=== PATIENT | male | born 1950 | race Caucasian/White ===

== ENCOUNTER 2022-03-30 08:05 | Day surgery (SDC) | payer BC, MEDICARE ==
[2022-03-28 09:59] VITALS: BMI 27.3
[~2022-03-30 08:05] MED LIST: LACTATED RINGERS 1,000 ML IV SCH
[2022-03-30 08:27] VITALS: TEMP 97.3
[2022-03-30] MEDS ORDERED: LIDOCAINE 2% INJ 20 MG/ML (2 ML VIAL) ONE (09:27)
[2022-03-30] MEDS ORDERED: GLYCOPYRROLATE 0.2 MG/ML 2 ML VIAL ONE (09:27)
[2022-03-30] MEDS ORDERED: PROPOFOL 10 MG/ML 20 ML VIAL IV ONE (09:27)
--- NOTE | 2022-03-30 09:42 | P.OP ---
Date of Procedure: 03/30/22 Preoperative Diagnosis: Screening colonoscopy Postoperative Diagnosis: Diverticulosis Procedure(s) Performed: Colonoscopy Anesthesia: MAC Surgeon: Lit Neville Pathology: none sent Condition: stable Disposition: PACU Description of Procedure: The patient's placed on the endoscopy table in the lateral position. He received IV sedation. Digital rectal exam performed. This revealed no ebonized. Flexible colonoscope was then placed patient anus and passed throughout the entire colon. The ileocecal valve was visualized. The cecum, ascending and transverse colon appeared normal. In the descending; there is moderate diverticular changes. Scope was then brought back the rectum was normal. Scope withdrawn the anus and internal hemorrhoids are noted. Scope was withdrawn for patient.
[2022-03-30 10:22] VITALS: BP 113/81; PULSE 96; RESP 15
--- NOTE | 2022-03-30 14:27 | P.GSHP ---
History of Present Illness H&P Date: 03/30/22 Chief Complaint: Screening colonoscopy This a 72-year-old male presents today for screening colonoscopy. Patient denies a significant GI complaints Past Medical History Past Medical History: No Reported History Additional Past Medical History / Comment(s): Seasonal allergies. History of Any Multi-Drug Resistant Organisms: None Reported Past Surgical History: Hernia Repair Additional Past Surgical History / Comment(s): Colonoscopy. Past Anesthesia/Blood Transfusion Reactions: No Reported Reaction Past Psychological History: No Psychological Hx Reported Smoking Status: Former smoker Past Alcohol Use History: Occasional Additional Past Alcohol Use History / Comment(s): Quit smoking 10-12 yrs ago. Rare cigar. Past Drug Use History: None Reported - Past Family History Father Family Medical History: Cancer Mother Family Medical History: Cancer Medications and Allergies Home Medications Medication Instructions Recorded Confirmed Type Loratadine [Claritin] 10 mg PO HS 03/28/22 03/30/22 History Naproxen Sodium [Aleve] 220 mg PO QAM 03/28/22 03/28/22 History Potassium (Unknown Dose) 1 tab PO DAILY 03/28/22 03/28/22 History Allergies Allergy/AdvReac Type Severity Reaction Status Date / Time No Known Allergies Allergy Verified 03/30/22 08:22 Surgical - Exam Vital Signs Temp Pulse Resp BP Pulse Ox 97.3 F L 95 16 154/102 99 03/30/22 08:26 03/30/22 08:26 03/30/22 08:26 03/30/22 08:26 03/30/22 08:26 - General well developed, well nourished, no distress - Eyes PERRL - ENT normal pinna - Neck no masses - Respiratory normal expansion - Cardiovascular Rhythm: regular - Abdomen Abdomen: soft, non tender Assessment and Plan Assessment: We'll perform screening colonoscopy
== END 2022-03-30 10:30 | disposition home or self-care (01) ==
LOC: ORWHC2ENDO 08:05
PROVIDERS: ATTEND Surgery
DX: Z12.11 Encounter for screening for malignant neoplasm of colon (principal); K57.30 Diverticulosis of large intestine without perforation or abscess without bleeding; K64.8 Other hemorrhoids; Z87.891 Personal history of nicotine dependence; Z86.59 Personal history of other mental and behavioral disorders; Z80.9 Family history of malignant neoplasm, unspecified; Z79.899 Other long term (current) drug therapy
CPT/HCPCS: J2704; J2001; G0121

== ENCOUNTER 2022-04-20 03:14 | Inpatient (IN) | payer MEDICARE ==
[2022-04-20] MEDS ORDERED: NITROGLYCERIN SL TABS 0.4 MG TAB SUBLINGUAL PRN ×2 (03:18→04:53)
[2022-04-20] MEDS ORDERED: HEPARIN SODIUM 1,000 UN/ML (10ML VL) IV ONE ×2 (03:18→04:03)
[2022-04-20] MEDS ORDERED: MORPHINE SULFATE 4 MG/ML SYRINGE IV STA (03:18)
[2022-04-20] MEDS ORDERED: MORPHINE SULFATE 4 MG/ML SYRINGE IV PRN (03:18)
[2022-04-20] MEDS ORDERED: ASPIRIN 81 MG PO STA (03:18)
[2022-04-20] MEDS ORDERED: SODIUM CHLORIDE 0.9% 1,000 ML IV STA (03:18)
--- NOTE | 2022-04-20 03:22 | ED ---
Chest Pain HPI - General Chief Complaint: Chest Pain Stated Complaint: STEMI Time Seen by Provider: 04/20/22 03:17 Source: patient, RN notes reviewed, old records reviewed Mode of arrival: EMS Limitations: no limitations - History of Present Illness Initial Comments: This is a 72-year-old male to the emergency department with no medical history patient wakes up tonight sleeping in bed with severe anterior chest pain and heaviness and chest pain. No nausea vomiting no other complaints. Patient is no travel history or sick contacts. No prior evaluation for heart disease. Patient's chest pain is anterior crushing with sweating and shortness of breath MD Complaint: chest pain -: minutes(s) Onset: during rest, awoke with symptoms Pain Location: substernal, left chest Pain Radiation: back Severity: moderate Severity scale (1-10): 7 Quality: tightness, aching, heaviness Consistency: constant Improves With: nothing Worsens With: nothing Anginal Symptoms: dyspnea, sense of impending doom Other Symptoms: palpitations Treatments Prior to Arrival: none - Related Data Home Medications Medication Instructions Recorded Confirmed Loratadine [Claritin] 10 mg PO HS 03/28/22 03/30/22 Naproxen Sodium [Aleve] 220 mg PO QAM 03/28/22 03/28/22 Potassium (Unknown Dose) 1 tab PO DAILY 03/28/22 03/28/22 Allergies Allergy/AdvReac Type Severity Reaction Status Date / Time No Known Allergies Allergy Verified 03/30/22 08:22 Review of Systems ROS Statement: Those systems with pertinent positive or pertinent negative responses have been documented in the HPI. ROS Other: All systems not noted in ROS Statement are negative. EKG Findings - EKG Comments: EKG Findings:: EKG interpreted by me is bradycardia 54 TX 159 QRS [address] elevated LA anterior lateral Past Medical History Past Medical History: No Reported History Additional Past Medical History / Comment(s): Seasonal allergies. History of Any Multi-Drug Resistant Organisms: None Reported Past Surgical History: Hernia Repair Additional Past Surgical History / Comment(s): Colonoscopy. Past Anesthesia/Blood Transfusion Reactions: No Reported Reaction Past Psychological History: No Psychological Hx Reported Smoking Status: Former smoker Past Alcohol Use History: Occasional Additional Past Alcohol Use History / Comment(s): Quit smoking 10-12 yrs ago. Rare cigar. Past Drug Use History: None Reported - Past Family History Father Family Medical History: Cancer Mother Family Medical History: Cancer General Exam Limitations: no limitations General appearance: alert, in no apparent distress, anxious Head exam: Present: atraumatic, normocephalic, normal inspection Eye exam: Present: normal appearance, PERRL, EOMI. Absent: scleral icterus, conjunctival injection, periorbital swelling ENT exam: Present: normal exam, mucous membranes moist Neck exam: Present: normal inspection. Absent: tenderness, meningismus, lymphadenopathy Respiratory exam: Present: normal lung sounds bilaterally. Absent: respiratory distress, wheezes, rales, rhonchi, stridor Cardiovascular Exam: Present: regular rate, normal rhythm, normal heart sounds. Absent: systolic murmur, diastolic murmur, rubs, gallop, clicks GI/Abdominal exam: Present: soft, normal bowel sounds. Absent: distended, tenderness, guarding, rebound, rigid Extremities exam: Present: normal inspection, full ROM, normal capillary refill. Absent: tenderness, pedal edema, joint swelling, calf tenderness Back exam: Present: normal inspection Neurological exam: Present: alert, oriented X3, CN II-XII intact Psychiatric exam: Present: normal affect, normal mood Skin exam: Present: warm, dry, intact, normal color. Absent: rash Course Vital Signs 04/20/22 03:16 Temperature 98.4 F Pulse Rate 69 Respiratory 14 Rate Blood Pressure 123/86 O2 Sat by Pulse 98 Oximetry - Reevaluation(s) Reevaluation #1: 04/20/22 03:21 STEMI was paged on prehospital EKG Reevaluation #2: 04/20/22 03:21 medical record is reviewed Reevaluation #3: 04/20/22 03:21 Chest pain is still consistent with lower - Consultations Consultation #1: Spoke with cardiology where patient will see patient here in the ER Consultation #2: spoke with Dr. Alvares who is okay to admit this patient Chest Pain MDM - MDM [address] elevated LA on prior hospital EKG. Critical Care Time Critical Care Time: Yes Total Critical Care Time: 31 Disposition Clinical Impression: Chest pain, ST elevation myocardial infarction (STEMI) Disposition: ADMITTED IP TO THIS HOSP Condition: Serious Is patient prescribed a controlled substance at d/c from ED?: No Referrals: Chele Tyson Jr, [Primary Care Provider] - 1-2 days Time of Disposition: 03:50
[2022-04-20] MEDS ORDERED: HEPARIN SOD,PORK IN 0.45% NACL 25,000 UNIT in 0.45% NACL 1 250ML.BAG IV SCH (03:30)
[2022-04-20 03:36] LABS: Basophils % (A) 0 %; Eosinophils # (A) 0.4 k/uL (0-0.7); Eosinophils % (A) 4 %; HCT 43.6 % (39.0-53.0); Lymphocytes # (A) 2.4 k/uL (1.0-4.8); Lymphocytes % (A) 28 %; MCH 30.5 pg (25.0-35.0); MCHC 34.4 g/dL (31.0-37.0); MCV 88.6 fL (80.0-100.0); Mean Platelet Volume 7.5; Monocytes # (A) 0.6 k/uL (0-1.0); Monocytes % (A) 7 %; Neutrophils # (A) 4.8 k/uL (1.3-7.7); Neutrophils % (A) 56 %; Platelet Count 236 k/uL (150-450); RBC 4.93 m/uL (4.30-5.90); RDW 12.7 % (11.5-15.5); WBC 8.5 k/uL (3.8-10.6)
[2022-04-20] MEDS: ATORVASTATIN 80 MG TAB PO SCH (03:36)
[2022-04-20 03:42] LABS: INR 0.9 (<1.2); Partial Thromboplastin Time 22.2 sec (22.0-30.0)
[2022-04-20 03:44] LABS: ALT 21 U/L (4-49); AST 26 U/L (17-59); African American GFR (CKD) >90 (>60 ml/min/1.73 sqM); Alkaline Phosphatase 101 U/L (38-126); Anion Gap 9 mmol/L; Blood Urea Nitrogen 17 mg/dL (9-20); Calcium 9.1 mg/dL (8.4-10.2); Carbon Dioxide 25 mmol/L (22-30); Chloride 102 mmol/L (98-107); Glucose 176 mg/dL (74-99); Lipase 50 U/L (23-300); Magnesium 1.8 mg/dL (1.6-2.3); Non-African American GFR(CKD) 88 (>60 ml/min/1.73 sqM); Potassium 3.9 mmol/L (3.5-5.1); Sodium 136 mmol/L (137-145); Total Bilirubin 0.5 mg/dL (0.2-1.3); Total Protein 6.4 g/dL (6.3-8.2)
--- NOTE | 2022-04-20 03:50 | XR ---
EXAMINATION TYPE: XR chest 1V portable DATE OF EXAM: 04/20/2022 COMPARISON: NONE HISTORY: Chest pain TECHNIQUE: Single view FINDINGS: Heart is normal. Lungs are clear of consolidation. There are no hilar masses. Costophrenic angles are clear. There are chest leads. Bony thorax is intact IMPRESSION: No active cardiopulmonary disease. Normal heart.
[2022-04-20] MEDS ORDERED: VERAPAMIL 2.5 MG/ML 2 ML AMP ONE (03:51)
[2022-04-20] MEDS ORDERED: HEPARIN SODIUM 1,000 UN/ML (10ML VL) ONE (03:51)
[2022-04-20] MEDS ORDERED: MIDAZOLAM 2 MG/2 ML VIAL IVP ONE (03:53)
[2022-04-20] MEDS ORDERED: LIDOCAINE 1% INJ 10MG/ML (5 ML VIAL-PF) SQ ONE (03:56)
[2022-04-20] MEDS ORDERED: IV FLUID CONTINUATION 1,000 ML IV ONE (03:56)
--- NOTE | 2022-04-20 03:57 | P.CRDCN ---
History of Present Illness History of present illness: This is Dr. Yang dictating a consult on this patient The patient was interviewed and examined IMPRESSION / ASSESSMENT: Acute inferior posterior ST elevation [place] Twelve-lead EKG shows ST elevation in the inferior leads and ST depressions in V1 and V2 consistent with an inferior posterior [place] ST elevation is more prominent in lead 2 than in lead 3 History of dyslipidemia Denies history of hypertension or diabetes History of smoking, quit greater than 10 years back History of hypokalemia, takes oral potassium PLAN: Patient received IV heparin 4000 units along with aspirin and metoprolol by mouth He was given 80 mg of atorvastatin in the ER by me Lipid panel hemoglobin A1c added to current sample Discussed with Dr. Painter and we'll proceed with urgent coronary angiography and intervention Discussed the patient and his . We will start spironolactone postprocedure since he has a history of hyperkalemia HPI patient woke up about 2:30 AM complaining of midsternal chest discomfort and bilateral arm heaviness He was a little dizzy and a bit short of breath The pain is persistent and he called EMS The EMS EKG documents ST elevation in the inferior leads When I saw him in the ER he was still experiencing midsternal chest discomfort but would comfortable Normal heart rates normal blood pressure Twelve-lead EKG showed ST elevation in the inferior leads and ST depression with T-wave inversions in V1 and V2 consistent with inferior posterior [place] ST elevations more prominent in lead 2 than in lead 3 Denies history of hypertension and diabetes Past history of smoking, stopped smoking 10 years back History of hypokalemia and takes oral potassium ROS: No fever chills or rigors, no cough, phlegm or expectoration, no nausea, vomiting or diarrhea, no hematuria, dysuria, no musculoskeletal complaints, no strokes or seizures, no skin lesions. EXAMINATION: Afebrile 98.4F blood pressure 123/86 mmHg Breath sounds are reduced bilaterally with scattered crackles at the bases Normal heart sounds normal S1 normal S2 no murmurs no gallops no rub No JVD no hepatojugular reflux No carotid bruits Peripheral pulses are palpable Regular rhythm REVIEW OF LABS, ECG & MEDICAL DATA Normal white count 8.5 thousand Normal hemoglobin of 15 Normal platelet count of 236,000 Sodium 136, potassium 3.9 Creatinine 0.87 Normal liver function tests Elevated glucose of 176 Past Medical History Past Medical History: No Reported History Additional Past Medical History / Comment(s): Seasonal allergies. History of Any Multi-Drug Resistant Organisms: None Reported Past Surgical History: Hernia Repair Additional Past Surgical History / Comment(s): Colonoscopy. Past Anesthesia/Blood Transfusion Reactions: No Reported Reaction Past Psychological History: No Psychological Hx Reported Smoking Status: Former smoker Past Alcohol Use History: Occasional Additional Past Alcohol Use History / Comment(s): Quit smoking 10-12 yrs ago. Rare cigar. Past Drug Use History: None Reported - Past Family History Father Family Medical History: Cancer Mother Family Medical History: Cancer Medications and Allergies Home Medications Medication Instructions Recorded Confirmed Type Loratadine [Claritin] 10 mg PO HS 03/28/22 03/30/22 History Naproxen Sodium [Aleve] 220 mg PO QAM 03/28/22 03/28/22 History Potassium (Unknown Dose) 1 tab PO DAILY 03/28/22 03/28/22 History Allergies Allergy/AdvReac Type Severity Reaction Status Date / Time No Known Allergies Allergy Verified 03/30/22 08:22 Physical Exam Vitals: Vital Signs Temp Pulse Pulse Resp BP Pulse Ox 04/20/22 03:25 64 04/20/22 03:16 98.4 F 69 14 123/86 98 Intake and Output 04/19/22 04/19/22 04/20/22 14:59 22:59 06:59 Other: Weight 88.904 kg Results 04/20/22 03:15 04/20/22 03:15 Cardiac Enzymes 04/20/22 Range/Units 03:15 AST 26 (17-59) U/L CBC 04/20/22 Range/Units 03:15 WBC 8.5 (3.8-10.6) k/uL RBC 4.93 (4.30-5.90) m/uL Hgb 15.0 (13.0-17.5) gm/dL Hct 43.6 (39.0-53.0) % Plt Count 236 (150-450) k/uL Comprehensive Metabolic Panel 04/20/22 Range/Units 03:15 Sodium 136 L (137-145) mmol/L Potassium 3.9 (3.5-5.1) mmol/L Chloride 102 (98-107) mmol/L Carbon Dioxide 25 (22-30) mmol/L BUN 17 (9-20) mg/dL Creatinine 0.87 (0.66-1.25) mg/dL Glucose 176 H (74-99) mg/dL Calcium 9.1 (8.4-10.2) mg/dL AST 26 (17-59) U/L ALT 21 (4-49) U/L Alkaline Phosphatase 101 (38-126) U/L Total Protein 6.4 (6.3-8.2) g/dL Albumin 4.0 (3.5-5.0) g/dL Current Medications Generic Name Dose Route Start Last Admin Trade Name Freq PRN Reason Stop Dose Admin Aspirin 325 mg 04/21/22 09:00 Aspirin 325 Mg Tab PO DAILY [facility] Atorvastatin Calcium 80 mg 04/20/22 09:00 04/20/22 03:36 Atorvastatin 80 Mg Tab PO 80 mg DAILY TC Administration Sodium Chloride 1,000 mls @ 100 mls/hr 04/20/22 03:18 04/20/22 03:24 Saline 0.9% IV 04/20/22 13:17 100 mls/hr .Q10H STA Administration Heparin Sodium/Sodium Chloride 250 mls @ 10.002 mls/hr 04/20/22 03:30 25,000 unit/ Sodium Chloride IV .Q24H [facility] Protocol 11.25 UNITS/KG/HR Metoprolol Tartrate 25 mg 04/20/22 09:00 Metoprolol Tartrate 25 Mg Tab PO BID [facility] Morphine Sulfate 4 mg 04/20/22 03:18 Morphine Sulfate 4 Mg/Ml Syringe IV Q6HR PRN Chest Pain Nitroglycerin 0.4 mg 04/20/22 03:18 Nitroglycerin Sl Tabs 0.4 Mg Tab SUBLINGUAL Q5M PRN Chest Pain Intake and Output 04/19/22 04/19/22 04/20/22 14:59 22:59 06:59 Other: Weight 88.904 kg Patient Weight 04/20/22 06:59 Weight 88.904 kg 04/20/22 03:15 04/20/22 03:15
[2022-04-20] MEDS ORDERED: VERAPAMIL SYRINGE (5 MG/10 ML) INTRAARTER ONE (04:00)
[2022-04-20] MEDS ORDERED: MORPHINE SULFATE 4 MG/ML SYRINGE ONE (04:06)
[2022-04-20] MEDS ORDERED: MORPHINE SULFATE 4 MG/ML SYRINGE IVP ONE (04:10)
[2022-04-20] MEDS ORDERED: CLOPIDOGREL 75 MG TAB ONE (04:11)
[2022-04-20] MEDS ORDERED: CLOPIDOGREL 75 MG TAB PO ONE (04:14)
[2022-04-20] MEDS ORDERED: SODIUM CHLORIDE 0.9% 1,000 ML IV ONE (04:27)
[2022-04-20] MEDS ORDERED: ADENOSINE 90 MG in SODIUM CHLORIDE 0.9% 60 ML IVP ONE (04:40)
[2022-04-20] MEDS ORDERED: IOPAMIDOL-300 50ML BTL INJ ONE (04:47)
[2022-04-20] MEDS ORDERED: IOPAMIDOL-370 100ML BTL INJ ONE (04:47)
[2022-04-20] MEDS ORDERED: ATROPINE SULFATE 0.1 MG/ML 10ML SYRINGE IV PRN (04:53)
[2022-04-20] MEDS ORDERED: RX INFO: IV CONTRAST WAS GIVEN 1 EACH MISC MISCELLANE PRN (04:53)
[2022-04-20] MEDS ORDERED: ZOLPIDEM 5 MG TAB PO PRN (04:53)
[2022-04-20] MEDS ORDERED: MAG HYDROX/AL HYDROX/SIMETH 30 ML CUP PO PRN (04:53)
[2022-04-20] MEDS ORDERED: SODIUM CHLORIDE 0.9% 1,000 ML in EMPTY BAG 1 BAG IV SCH (05:00)
--- NOTE | 2022-04-20 05:03 | P.PCN ---
Date of Procedure: 04/20/22 Operative Findings: CARDIAC CATHETERIZATION AND PERCUTANEOUS CORONARY INTERVENTION PERFORMING PHYSICIAN: Humza Painter MD, [facility] PROCEDURE PERFORMED: 1. Selective right and left coronary angiogram 2. Left heart catheterization 3. Successful stenting of proximal LCx using 3.5 x 23 mm Xience MAYANK which with an excellent angiographic results with adjunctive view was of aspiration thrombectomy 4. FFR of the left anterior descending artery INDICATION: Acute infero-posterior ST segment elevation myocardial infarction COMPLICATION: None APPROACH: Right radial artery LEVEL OF SEDATION: Moderate with the sedation time off 56 minutes PROCEDURE DESCRIPTION: After obtaining an informed consent the patient was brought to the cardiac field laboratory operator. The right radial artery was cannulated using micropuncture technique, the micropuncture wire passed easily then I placed a 6-Sinhala sheath. I gave the patient 2 mg of verapamil intra-arterial and he was given initially 4000 use of heparin intravenous and additional 2000 units of heparin given throughout the procedure with continuous ACT monitoring. Selective right and left coronary angiogram was performed using JR4 diagnostic catheter for the right coronary artery and JL 3.5 guiding catheter for the left coronary system. After that I did intervene on the LCx. After that I did an FFR of the LAD. Left heart catheterization after that was performed using pigtail catheter. The procedure was completed without any complication SELECTIVE CORONARY ANGIOGRAM: The right coronary artery: Large caliber vessel and dominant vessel. The RCA is angiographically normal. Bifurcates distally into PDA and PLV branches both appears to be angiographically normal Left main: Has mild disease only The left circumflex: Large-caliber vessel and nondominant vessel. The LCx is occluded in the proximal portion with a large thrombus burden. The left anterior descending artery: Large-caliber vessel. The proximal LAD has mild disease only. The mid LAD has a tubular lesion appears to be in the range of 60%. FFR was performed and came in to be nonischemic at 0.87. HEMODYNAMICS: The LVEDP was 15 mmHg was no significant gradient across aortic valve PCI OF THE LCx: Anticoagulation was initiated using heparin with continuous ACT monitoring. I did engage the left main using a JL 3.5 guiding catheter. I did wire the LCx and cross the acute total occlusion using a whisper wire. After that I did aspiration thrombectomy from the LCx. Balloon angioplasty was performed after that using 2.5 x 15 mm balloon before I deployed 3.5 x 23 mm stent where the stent was positioned under fluoroscopy guidance and deployed under its nominal pressure. Postdilatation was performed using 4 mm noncompliant balloon. Final angiogram of the left circumflex showed good angiographic results. Because there was intermediate lesion involving the LAD I decided to FFR it only. After zeroing the Doppler wire and equalizing between the Doppler wire and the guiding catheter which was JL 3.5 guiding catheter I did an FFR with IV at his infusion that came in to be 0.87 which is nonischemic. CONCLUSION: 1. 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 Successful stenting of the LCx was performed with NIKKY-3 flow 2. Intermediate none flow limiting lesion involving the mid left anterior descending artery 3. Normal left side filling pressure POSTPROCEDURE MANAGEMENT: #1 dual antiplatelet therapy using aspirin and Plavix for at least 12 months #2 aggressive cholesterol control #3 follow-up with the patient
[2022-04-20 05:14] LABS: Glucose,Whole Blood 120 mg/dL (70-110)
[2022-04-20] MEDS ORDERED: Potassium Replacement Protocol 1 EACH MISC MISCELLANE PRN (08:13)
[2022-04-20] MEDS: METOPROLOL TARTRATE 25 MG TAB PO SCH ×2 (08:29→20:15)
[2022-04-20] MEDS ORDERED: METOPROLOL TARTRATE 25 MG TAB PO SCH (09:00)
[2022-04-20] MEDS ORDERED: POTASSIUM CHLORIDE ER 20 MEQ TAB.ER PO SCH (09:00)
--- NOTE | 2022-04-20 11:26 | P.HPIM ---
History of Present Illness H&P Date: 04/20/22 Chief Complaint: Chest pain This is 72-year-old male patient previously seen by our nurse practitioner, Tyrell Talley, began experiencing midsternal chest pressure or valentine rtness of breath and diaphoresis in the early hours of April 20. He came emergency room and found to have an acute inferior/posterior ST elevated myocardial infarction. He was taken to soap slabber and successfully had a stent of the left circumflex artery. Currently is resting in the intensive care unit without complaint. All his questions were discussed and answered with his at bedside. Currently the patient denies any chest pains compression, shortness breath, nausea or vomiting. He is urinating normally. He does not have bowel movement. Vital signs show a normal heart rate, normal blood pressure, pulse oximetry normal on room air. Laboratory studies are stable. Of note his abnormal troponin at 0.313 x 128.00. CBC and chemistries were essentially normal. Did have glucose so that was 176 admission. Chest x-ray was normal. He is currently on aspirin, atorvastatin 80 mg, Plavix, metoprolol, when necessary nitroglycerin, Ambien, and when necessary morphine. Waterway Traffic Checker consult it, and artery performed cardiac catheterization and stenting, and her monitoring his status. Review of Systems All systems: negative Past Medical History Past Medical History: No Reported History Additional Past Medical History / Comment(s): Seasonal allergies. History of Any Multi-Drug Resistant Organisms: None Reported Past Surgical History: Hernia Repair Additional Past Surgical History / Comment(s): Colonoscopy. Past Anesthesia/Blood Transfusion Reactions: No Reported Reaction Past Psychological History: No Psychological Hx Reported Smoking Status: Former smoker Past Alcohol Use History: Occasional Additional Past Alcohol Use History / Comment(s): Quit smoking 10-12 yrs ago. Rare cigar. Past Drug Use History: None Reported - Past Family History Father Family Medical History: Cancer Additional Family Medical History / Comment(s): Liver cirrosis Mother Family Medical History: Cancer Additional Family Medical History / Comment(s): Valve replacement Medications and Allergies Home Medications Medication Instructions Recorded Confirmed Type Loratadine [Claritin] 10 mg PO HS 03/28/22 04/20/22 History Naproxen Sodium [Aleve] 220 mg PO DAILY 03/28/22 04/20/22 History Potassium (Unknown Dose) 1 tab PO DAILY 03/28/22 04/20/22 History Allergies Allergy/AdvReac Type Severity Reaction Status Date / Time No Known Allergies Allergy Verified 04/20/22 10:30 Physical Exam Vitals: Vital Signs Temp Pulse Pulse Pulse Pulse Resp BP 04/20/22 10:00 79 16 111/76 04/20/22 09:00 81 15 118/88 04/20/22 08:30 90 16 118/88 04/20/22 08:00 98.3 F 96 23 115/81 04/20/22 07:32 04/20/22 07:30 92 14 126/83 04/20/22 07:00 96 14 130/98 04/20/22 06:30 77 9 L 130/89 04/20/22 06:20 90 14 130/89 04/20/22 06:15 93 04/20/22 06:10 93 13 135/88 04/20/22 06:00 90 17 123/86 04/20/22 05:50 85 13 123/86 04/20/22 05:40 85 10 L 113/80 04/20/22 05:30 97.7 F 87 80 20 128/101 04/20/22 05:20 97.7 F 89 14 128/101 04/20/22 05:14 92 14 04/20/22 03:41 97.7 F 86 20 04/20/22 03:25 64 04/20/22 03:16 98.4 F 69 14 123/86 BP Pulse Ox 04/20/22 10:00 95 04/20/22 09:00 92 L 04/20/22 08:30 91 L 04/20/22 08:00 93 L 04/20/22 07:32 93 L 04/20/22 07:30 04/20/22 07:00 94 L 04/20/22 06:30 04/20/22 06:20 96 04/20/22 06:15 04/20/22 06:10 96 04/20/22 06:00 96 04/20/22 05:50 94 L 04/20/22 05:40 95 04/20/22 05:30 136/87 97 04/20/22 05:20 96 04/20/22 05:14 04/20/22 03:41 113/80 97 04/20/22 03:25 04/20/22 03:16 98 Intake and Output 04/19/22 04/20/22 04/20/22 22:59 06:59 14:59 Intake Total 385 400 Output Total 600 Balance 385 -200 Intake: IV 235 225 Sodium Chloride 0.9% 1, 225 000 ml In Empty Bag 1 bag @ 75 mls/hr IV .[id number] TC Rx#:[id number] Intake, IV Titration 150 75 Amount Sodium Chloride 0.9% 1, 150 75 000 ml In Empty Bag 1 bag @ 75 mls/hr IV .[id number] TC Rx#:[id number] Oral 100 Output: Urine 600 Other: # Voids 1 Weight 92.9 kg GENERAL: Well-appearing, well-nourished and in no acute distress. HEAD: Atraumatic, normocephalic. EYES: Pupils equal round and reactive to light, extraocular movements intact, sclera anicteric, conjunctiva are normal. ENT:nares patent, oropharynx clear without exudates. Moist mucous membranes. NECK: Normal range of motion, supple without lymphadenopathy or JVD, no thyromegaly LUNGS: Breath sounds clear to auscultation bilaterally and equal. No wheezes rales or rhonchi. HEART: Regular rate and rhythm without murmurs, rubs or gallops.S1S2 Normal ABDOMEN: Soft, nontender, normoactive bowel sounds. No guarding, no rebound. No masses appreciated. EXTREMITIES: Normal range of motion, no pitting or edema. No clubbing or cyanosis. NEUROLOGICAL: Cranial nerves II through XII grossly intact. Normal speech, normal gait. PSYCH: Normal mood, normal affect. SKIN: Warm, Dry, normal turgor, no rashes or lesions noted. Results CBC & Chem 7: 04/20/22 03:15 04/20/22 03:15 Labs: Abnormal Lab Results - Last 24 Hours (Table) 04/20/22 04/20/22 04/20/22 Range/Units 03:15 03:15 05:13 Sodium 136 L (137-145) mmol/L Glucose 176 H (74-99) mg/dL POC Glucose (mg/dL) 120 H (70-110) mg/dL Troponin I 0.313 H* (0.000-0.034) ng/mL 04/20/22 Range/Units 08:30 Sodium (137-145) mmol/L Glucose (74-99) mg/dL POC Glucose (mg/dL) (70-110) mg/dL Troponin I 128.000 H* (0.000-0.034) ng/mL Chest x-ray: report reviewed Thrombosis Risk Factor Assmnt - DVT/VTE Prophylaxis DVT/VTE Prophylaxis: Pharmacologic Prophylaxis ordered - Choose All That Apply Each Factor Represents 1 point: Acute [place], Age 41-60 years Other Risk Factors: No Thrombosis Risk Factor Assessment Total Risk Factor Score: 2 Thrombosis Risk Factor Assessment Level: Low Risk Assessment and Plan (1) S/P cardiac catheterization Current Visit: Yes Status: Acute Code(s): Z98.890 - OTHER SPECIFIED POSTPROCEDURAL STATES SNOMED Code(s): 71171051453418 (2) H/O heart artery stent Current Visit: Yes Status: Acute Code(s): Z95.5 - PRESENCE OF CORONARY ANGIOPLASTY IMPLANT AND GRAFT SNOMED Code(s): 381603497 (3) Seasonal allergies Current Visit: Yes Status: Acute Code(s): J30.2 - OTHER SEASONAL ALLERGIC RHINITIS SNOMED Code(s): 704383611 (4) Osteoarthritis Current Visit: Yes Status: Acute Code(s): M19.90 - UNSPECIFIED OSTEOARTHRITIS, UNSPECIFIED SITE SNOMED Code(s): 407893096 (5) Hyperlipidemia Current Visit: Yes Status: Acute Code(s): E78.5 - HYPERLIPIDEMIA, UNSPECIFIED SNOMED Code(s): 39251342 (6) Chest pain Current Visit: Yes Status: Acute Code(s): R07.9 - CHEST PAIN, UNSPECIFIED SNOMED Code(s): 88637747 (7) ST elevation myocardial infarction (STEMI) Current Visit: Yes Status: Acute Code(s): I21.3 - ST ELEVATION (STEMI) MYOCARDIAL INFARCTION OF UNSP SITE SNOMED Code(s): 75752213 (8) Elevated fasting glucose Current Visit: Yes Status: Acute Code(s): R73.01 - IMPAIRED FASTING GLUCOSE SNOMED Code(s): 52090251 Plan: I will remain on the current medications of aspirin Plavix, atorvastatin, metoprolol, when necessary nitroglycerin, when necessary morphine, Ambien for sleep. I'll wait on further recommendations from cardiology. In the office is cholesterol had been borderline, discussed with him the need for cholesterol medication after cardiac event along with antiplatelet therapy and a heart rate control. His seem to understand that. We'll repeat labs in a.m. Him. On next 24 hours. The abnormal sugars will check a hemoglobin A1c and also a TSH checked. He was cautioned to not take any more nonsteroidal anti-inflammatories again due to the increased risk of her current infarction.
[2022-04-20 12:20] LABS: Chol/HDL Ratio 5.07 Ratio
[2022-04-21 04:43] LABS: Basophils % (A) 0 %; Eosinophils # (A) 0.2 k/uL (0-0.7); Eosinophils % (A) 2 %; HCT 42.5 % (39.0-53.0); HGB 14.6 gm/dL (13.0-17.5); Lymphocytes % (A) 9 %; MCH 30.4 pg (25.0-35.0); MCHC 34.3 g/dL (31.0-37.0); MCV 88.8 fL (80.0-100.0); Mean Platelet Volume 7.3; Monocytes # (A) 0.6 k/uL (0-1.0); Monocytes % (A) 6 %; Neutrophils # (A) 8.3 k/uL (1.3-7.7); Neutrophils % (A) 81 %; Platelet Count 205 k/uL (150-450); RBC 4.79 m/uL (4.30-5.90); RDW 12.8 % (11.5-15.5); WBC 10.2 k/uL (3.8-10.6)
[2022-04-21 04:57] LABS: African American GFR (CKD) >90 (>60 ml/min/1.73 sqM); Anion Gap 5 mmol/L; Blood Urea Nitrogen 13 mg/dL (9-20); Calcium 8.9 mg/dL (8.4-10.2); Carbon Dioxide 25 mmol/L (22-30); Chloride 101 mmol/L (98-107); Glucose 128 mg/dL (74-99); Magnesium 1.8 mg/dL (1.6-2.3); Non-African American GFR(CKD) >90 (>60 ml/min/1.73 sqM); Potassium 4.2 mmol/L (3.5-5.1); Sodium 131 mmol/L (137-145)
[2022-04-21] MEDS ORDERED: ACETAMINOPHEN TAB 500 MG TAB PO PRN (05:07)
[2022-04-21] MEDS ORDERED: Magnesium Replacement Protocol 1 EACH MISC MISCELLANE PRN (05:08)
[2022-04-21] MEDS: MAGNESIUM SULFATE-D5W PMX 1 GM in DEXTROSE/WATER 1 100ML.BAG IVPB SCH ×2 (05:52→07:01)
[2022-04-21] MEDS: ASPIRIN 325 MG TAB PO SCH (08:53)
[2022-04-21] MEDS: ATORVASTATIN 80 MG TAB PO SCH (08:53)
[2022-04-21] MEDS: CLOPIDOGREL 75 MG TAB PO SCH (08:54)
[2022-04-21] MEDS: METOPROLOL TARTRATE 25 MG TAB PO SCH ×2 (08:54→20:50)
[2022-04-21 08:55] LABS: Chol/HDL Ratio 4.66 Ratio; LDL Cholesterol,Calculated 129.9 mg/dL (0.0-131.0)
--- NOTE | 2022-04-21 10:18 | P.PN ---
Subjective This is Dr. Yang dictating a consult on this patient HPI patient woke up about 2:30 AM complaining of midsternal chest discomfort and bilateral arm heaviness He was a little dizzy and a bit short of breath The pain is persistent and he called EMS The EMS EKG documents ST elevation in the inferior leads When I saw him in the ER he was still experiencing midsternal chest discomfort but would comfortable Normal heart rates normal blood pressure Twelve-lead EKG showed ST elevation in the inferior leads and ST depression with T-wave inversions in V1 and V2 consistent with inferior posterior IL ST elevations more prominent in lead 2 than in lead 3 Denies history of hypertension and diabetes Past history of smoking, stopped smoking 10 years back History of hypokalemia and takes oral potassium 04/21 Patient seen and examined. He underwent heart catheterization yesterday morning with PCI of his circumflex and additional FFR of the LAD which was normal. He denies any further chest pain or pressure. Echocardiogram pending. Blood pres sures have been well controlled on current regimen. No significant arrhythmias EXAMINATION: Vitals reviewed Breath sounds are reduced bilaterally with scattered crackles at the bases Normal heart sounds normal S1 normal S2 no murmurs no gallops no rub No JVD no hepatojugular reflux No carotid bruits Peripheral pulses are palpable Regular rhythm IMPRESSION / ASSESSMENT: Acute inferior posterior ST elevation IL, s/p PCI circumflex with residual nonobstructive LAD lesion by FFR History of dyslipidemia Denies history of hypertension or diabetes History of smoking, quit greater than 10 years back History of hypokalemia, takes oral potassium PLAN: Continue to monitor patient however patient may be moved to cardiac unit. Check 2-D echo. Continue dual antiplatelets. Continue high intensity statin as well as beta carolyn. Hopefully discharge home tomorrow if remains stable. Objective - Vital Signs Vital signs: Vital Signs Temp 99 F 04/21/22 08:00 Pulse 91 04/21/22 09:15 Resp 18 04/21/22 09:15 BP 119/87 04/21/22 09:15 Pulse Ox 95 04/21/22 09:15 FiO2 Intake & Output 04/20/22 04/21/22 04/21/22 18:59 06:59 18:59 Intake Total 1250 150 315 Output Total 1100 0 Balance 150 150 315 Weight 93 kg Intake: IV 675 75 Sodium Chloride 0.9% 1, 675 75 000 ml In Empty Bag 1 bag @ 75 mls/hr IV .[id number] TC Rx#:[id number] Intake, IV Titration 75 Amount Sodium Chloride 0.9% 1, 75 000 ml In Empty Bag 1 bag @ 75 mls/hr IV .[id number] TC Rx#:[id number] Oral 500 150 240 Output: Urine 1100 0 Other: # Voids 1 0 0 - Labs CBC & Chem 7: 04/21/22 03:59 04/21/22 03:59 Labs: Abnormal Lab Results - Last 24 Hours (Table) 04/20/22 04/20/22 04/20/22 Range/Units 08:30 08:30 13:07 Neutrophils # (1.3-7.7) k/uL Sodium (137-145) mmol/L Glucose (74-99) mg/dL Hemoglobin A1c 6.3 H (0.0-6.0) % Troponin I 142.000 H* (0.000-0.034) ng/mL Triglycerides 208.00 H (0.00-149.00) mg/dL Cholesterol 220.00 H (0.00-200.00) mg/dL LDL Cholesterol, Calc 135.0 H (0.0-131.0) mg/dL VLDL Cholesterol, Calc 41.60 H (5.00-40.00) mg/dL 04/21/22 04/21/22 Range/Units 03:59 03:59 Neutrophils # 8.3 H (1.3-7.7) k/uL Sodium 131 L (137-145) mmol/L Glucose 128 H (74-99) mg/dL Hemoglobin A1c (0.0-6.0) % Troponin I (0.000-0.034) ng/mL Triglycerides (0.00-149.00) mg/dL Cholesterol (0.00-200.00) mg/dL LDL Cholesterol, Calc (0.0-131.0) mg/dL VLDL Cholesterol, Calc (5.00-40.00) mg/dL
[2022-04-21] MEDS: SPIRONOLACTONE 25 MG TAB PO SCH (11:03)
--- NOTE | 2022-04-21 11:22 | CA ---
Transthoracic Echo Report Name: Glenn Carlisle Age: 72 Gender: M : 1950 Exam Date: 04/21/2022 08:38 Exam Location: [facility] Ht (in): 70 Wt (lb): 205 Ordering Physician: Humza Painter MD ([id number]) Attending/Referring Phys: Needle Leader Audrey Godoy RDCS Procedure CPT: Indications: stemi Cardiac Hx: Technical Quality: Fair Contrast 1: Total Dose (mL): Contrast 2: Total Dose (mL): MEASUREMENTS (Male / Female) Normal Values 2D ECHO LV Diastolic Diameter PLAX 3.2 cm 4.2 - 5.9 / 3.9 - 5.3 cm LV Systolic Diameter PLAX 2.3 cm IVS Diastolic Thickness 1.7 cm 0.6 - 1.0 / 0.6 - 0.9 cm LVPW Diastolic Thickness 1.5 cm 0.6 - 1.0 / 0.6 - 0.9 cm LV Relative Wall Thickness 1.0 LA Volume 42.4 cm??? 18 - 58 / 22 - 52 cm??? M-MODE Aortic Root Diameter MM 3.7 cm LA Systolic Diameter MM 2.7 cm LA Ao Ratio MM 0.7 DOPPLER AV Peak Velocity 109.6 cm/s AV Peak Gradient 4.8 mmHg AV Mean Velocity 89.2 cm/s AV Mean Gradient 3.3 mmHg AV Velocity Time Integral 21.1 cm LVOT Peak Velocity 98.3 cm/s LVOT Peak Gradient 3.9 mmHg MV Area PHT 4.4 cm??? Mitral E Point Velocity 46.7 cm/s Mitral A Point Velocity 63.4 cm/s Mitral E to A Ratio 0.7 MV Deceleration Time 171.7 ms MV E' Velocity 6.1 cm/s Mitral E to MV E' Ratio 7.7 TR Peak Velocity 218.5 cm/s TR Peak Gradient 19.1 mmHg Right Ventricular Systolic Press 24.1 mmHg FINDINGS Left Ventricle Moderately increased left ventricular wall thickness. Hypokinetic lateral wall. Left ventricular ejection fraction is estimated at 45 % Right Ventricle Normal right ventricular size and function. Right ventricular systolic pressure within normal limits. Right Atrium Normal right atrial size. Left Atrium Normal left atrial size. Mitral Valve Structurally normal mitral valve. No mitral stenosis. Trace to mild mitral regurgitation. Aortic Valve No aortic valve stenosis or regurgitation. Tricuspid Valve Structurally normal tricuspid valve. Mild tricuspid regurgitation. Pulmonic Valve Pulmonic valve not well visualized. Pericardium No pericardial effusion. Aorta Normal size aortic root and proximal ascending aorta. CONCLUSIONS Moderate increased left ventricular wall thickness Left ventricular ejection fraction 45% with bilateral hypokinesis Trace to mild mitral regurgitation Mild tricuspid regurgitation Previewed by: Dr. Salbador Navarro DO (Electronically Signed) Final Date: 21 April 2022 11:22
[2022-04-21 12:33] VITALS: BMI 29.4
--- NOTE | 2022-04-21 14:15 | P.PN ---
Subjective 04/20/2022: This is 72-year-old male patient previously seen by our nurse practitioner, Tyrell Talley, began experiencing midsternal chest pressure or shortness of breath and diaphoresis in the early hours of April 20. He came emergency room and found to have an acute inferior/posterior ST elevated myocardial infarction. He was taken to cath lab manager and successfully had a stent of the left circumflex artery. Currently is resting in the intensive care unit without complaint. All his questions were discussed and answered with his at bedside. Currently the patient denies any chest pains compression, shortness breath, nausea or vomiting. He is urinating normally. He does not have bowel movement. Vital signs show a normal heart rate, normal blood pressure, pulse oximetry normal on room air. Laboratory studies are stable. Of note his abnormal troponin at 0.313 x 128.00. CBC and chemistries were essentially normal. Did have glucose so that was 176 admission. Chest x-ray was normal. He is currently on aspirin, atorvastatin 80 mg, Plavix, metoprolol, when necessary nitroglycerin, Ambien, and when necessary morphine. Meat Smoker consult it, and artery performed cardiac catheterization and stenting, and her monitoring his status. 04/21/2022: Patient remains resting comfortably intensive care unit. He has no complaints today. No chest pain, no shortness breath no nausea vomiting. Tolerating regular diet. Vital signs are stable today with normal blood pressure and heart rate. Pulse oximetry is normal. Laboratory studies today show normal CBC with slightly increased neutrophils, normal electrolytes with the exception of glucose 128 and a sodium 131. A1c was 6.3. Calcium and magnesium were normal. His TSH was 1.4. Cholesterol was reviewed showing a total of 220 with an LDL 135. Objective - Vital Signs Vital signs: Vital Signs Temp 97.7 F 04/21/22 13:15 Pulse 86 04/21/22 13:15 Resp 18 04/21/22 13:15 BP 120/78 04/21/22 13:15 Pulse Ox 94 L 04/21/22 13:15 FiO2 Intake & Output 04/20/22 04/21/22 04/21/22 18:59 06:59 18:59 Intake Total 1250 150 795 Output Total 1100 0 Balance 150 150 795 Weight 93 kg 93 kg Intake: IV 675 75 Sodium Chloride 0.9% 1, 675 75 000 ml In Empty Bag 1 bag @ 75 mls/hr IV .[id number] TC Rx#:[id number] Intake, IV Titration 75 Amount Sodium Chloride 0.9% 1, 75 000 ml In Empty Bag 1 bag @ 75 mls/hr IV .[id number] TC Rx#:[id number] Oral 500 150 720 Output: Urine 1100 0 Other: Voiding Method Toilet # Voids 1 0 1 - Exam GENERAL: Well-appearing, well-nourished and in no acute distress. NECK: Normal range of motion, supple without lymphadenopathy or JVD, no thyromegaly LUNGS: Breath sounds clear to auscultation bilaterally and equal. No wheezes rales or rhonchi. HEART: Regular rate and rhythm without murmurs, rubs or gallops.S1S2 Normal ABDOMEN: Soft, nontender, normoactive bowel sounds. No guarding, no rebound. No masses appreciated. EXTREMITIES: Normal range of motion, no pitting or edema. No clubbing or c yanosis. NEUROLOGICAL: Cranial nerves II through XII grossly intact. Normal speech, normal gait. PSYCH: Normal mood, normal affect. SKIN: Warm, Dry, normal turgor, no rashes or lesions noted. - Labs CBC & Chem 7: 04/21/22 03:59 04/21/22 03:59 Labs: Abnormal Lab Results - Last 24 Hours (Table) 04/20/22 04/21/22 04/21/22 Range/Units 13:07 03:59 03:59 Neutrophils # 8.3 H (1.3-7.7) k/uL Sodium 131 L (137-145) mmol/L Glucose 128 H (74-99) mg/dL Troponin I 142.000 H* (0.000-0.034) ng/mL Assessment and Plan (1) S/P cardiac catheterization Current Visit: Yes Status: Acute Code(s): Z98.890 - OTHER SPECIFIED POSTPROCEDURAL STATES SNOMED Code(s): 15708405578440 (2) H/O heart artery stent Current Visit: Yes Status: Acute Code(s): Z95.5 - PRESENCE OF CORONARY A NGIOPLASTY IMPLANT AND GRAFT SNOMED Code(s): 801058647 (3) Seasonal allergies Current Visit: Yes Status: Acute Code(s): J30.2 - OTHER SEASONAL ALLERGIC RHINITIS SNOMED Code(s): 942621174 (4) Osteoarthritis Current Visit: Yes Status: Acute Code(s): M19.90 - UNSPECIFIED OSTEOARTHRITIS, UNSPECIFIED SITE SNOMED Code(s): 998687950 (5) Hyperlipidemia Current Visit: Yes Status: Acute Code(s): E78.5 - HYPERLIPIDEMIA, UNSPECIFIED SNOMED Code(s): 51848582 (6) Chest pain Current Visit: Yes Status: Acute Code(s): R07.9 - CHEST PAIN, UNSPECIFIED SNOMED Code(s): 30035771 (7) ST elevation myocardial infarction (STEMI) Current Visit: Yes Status: Acute Code(s): I21.3 - ST ELEVATION (STEMI) MYOCARDIAL INFARCTION OF [facility] SITE SNOMED Code(s): 62127801 (8) Elevated fasting glucose Current Visit: Yes Status: Acute Code(s): R73.01 - IMPAIRED FASTING GLUCOSE SNOMED Code(s): 29244658 (9) Diabetes Current Visit: Yes Status: Acute Code(s): E11.9 - TYPE 2 DIABETES MELLITUS WITHOUT COMPLICATIONS SNOMED Code(s): 44634405 Plan: remain on the current medications of aspirin Plavix, atorvastatin, metoprolol, when necessary nitroglycerin, when necessary morphine, Ambien for sleep. I'll wait on further recommendations from cardiology. In the office is cholesterol had been borderline, discussed with him the need for cholesterol medication after cardiac event along with antiplatelet therapy and a heart rate control. His seem to understand that. The abnormal sugars prompted an order free Garvin and A1c which was abnormal at 6.3. He has an early diabetic. He was cautioned to not take any more nonsteroidal anti-inflammatories again due to the increased risk of her current infarction. He will start on Jardiance 10mg daily due to his recent [place] diabetic education if available, glucometer testing supplies diabetic diet were discussed We'll repeat labs in a.m. Him. On next 24 hours.
[2022-04-21 16:53] LABS: Glucose,Whole Blood 104 mg/dL (70-110)
[2022-04-21] MEDS: INSULIN ASPART (NovoLOG) 100 UNIT/ML VIAL SQ SCH ×2 (16:55→20:42)
[2022-04-21] MEDS: DAPAGLIFLOZIN PROPANEDIOL 5 MG TABLET PO SCH (17:03)
[2022-04-21 20:34] LABS: Glucose,Whole Blood 111 mg/dL (70-110)
[2022-04-22 04:08] VITALS: TEMP 98.2
[2022-04-22 06:28] LABS: Glucose,Whole Blood 118 mg/dL (70-110)
[2022-04-22] MEDS: INSULIN ASPART (NovoLOG) 100 UNIT/ML VIAL SQ SCH ×2 (06:31→12:05)
[2022-04-22] MEDS: SPIRONOLACTONE 25 MG TAB PO SCH (08:49)
[2022-04-22] MEDS: METOPROLOL TARTRATE 25 MG TAB PO SCH (08:49)
[2022-04-22] MEDS: ATORVASTATIN 80 MG TAB PO SCH (08:49)
[2022-04-22] MEDS: DAPAGLIFLOZIN PROPANEDIOL 5 MG TABLET PO SCH (08:49)
[2022-04-22] MEDS: ASPIRIN 325 MG TAB PO SCH (08:49)
[2022-04-22] MEDS: CLOPIDOGREL 75 MG TAB PO SCH (08:49)
[2022-04-22 08:59] VITALS: BP 117/76; PULSE 110; RESP 16
[2022-04-22 11:43] LABS: Glucose,Whole Blood 85 mg/dL (70-110)
--- NOTE | 2022-04-22 12:28 | P.DS ---
Providers Date of admission: 04/20/22 03:20 Expected date of discharge: 04/22/22 Attending physician: Chele Tyson Consults: 04/20/22 03:18 Consult Physician Urgent Consulting Provider: Harvinder Yang Consult Reason/Comments: stemi Do you want consulting provider notified?: Yes 04/20/22 03:48 Consult Physician Stat Consulting Provider: Harvinder Yang Consult Reason/Comments: stemi Do you want consulting provider notified?: Already Contacted 04/20/22 04:53 Consult Physician Routine Consulting Provider: [facility] Consult Reason/Comments: Post Interventional Patient Do you want consulting provider notified?: Already Contacted Primary care physician: Chele Tyson - Discharge Diagnosis(es) (1) S/P cardiac catheterization Current Visit: Yes Status: Acute (2) H/O heart artery stent Current Visit: Yes Status: Acute (3) Seasonal allergies Current Visit: Yes Status: Acute (4) Osteoarthritis Current Visit: Yes Status: Acute (5) Hyperlipidemia Current Visit: Yes Status: Acute (6) Chest pain Current Visit: Yes Status: Acute (7) ST elevation myocardial infarction (STEMI) Current Visit: Yes Status: Acute (8) Elevated fasting glucose Current Visit: Yes Status: Acute (9) Diabetes Current Visit: Yes Status: Acute Hospital Course: 04/20/2022: This is 72-year-old male patient previously seen by our nurse practitioner, Tyrell Talley, began experiencing midsternal chest pressure or shortness of breath and diaphoresis in the early hours of April 20. He came emergency room and found to have an acute inferior/posterior ST elevated myocardial infarction. He was taken to chemical laboratory tester and successfully had a stent of the left circumflex artery. Currently is resting in the intensive care unit without complaint. All his questions were discussed and answered with his at bedside. Currently the patient denies any chest pains compression, shortness breath, nausea or vomiting. He is urinating normally. He does not have bowel movement. Vital signs show a normal heart rate, normal blood pressure, pulse oximetry normal on room air. Laboratory studies are stable. Of note his abnormal troponin at 0.313 x 128.00. CBC and chemistries were essentially normal. Did have glucose so that was 176 admission. Chest x-ray was normal. He is currently on aspirin, atorvastatin 80 mg, Plavix, metoprolol, when necessary nitroglycerin, Ambien, and when necessary morphine. Security System Engineer consult it, and artery performed cardiac catheterization and stenting, and her monitoring his status. 04/21/2022: Patient remains resting comfortably intensive care unit. He has no complaints today. No chest pain, no shortness breath no nausea vomiting. Tolerating regular diet. Vital signs are stable today with normal blood pre ssure and heart rate. Pulse oximetry is normal. Laboratory studies today show normal CBC with slightly increased neutrophils, normal electrolytes with the exception of glucose 128 and a sodium 131. A1c was 6.3. Calcium and magnesium were normal. His TSH was 1.4. Cholesterol was reviewed showing a total of 220 with an LDL 135. 04/22/2022: Patient is doing well resting comfortably. He remains on estrogen Plavix for antiplatelet effect atorvastatin for hyperlipidemia, [place] for diabetes, insulin scale for diabetes, metoprolol for heart rate control, when necessary nitroglycerin for chest pain, spironolactone for diuresis. He is doing well and if cleared by cardiology to go home. He was cautioned to not take his potassium supplementation with the [facility] at this time. Were unable to transmit a glucometer and testing supplies from this computer system will take care of that in the office. He will be placed on chart transfer diabetes at home. Patient Condition at Discharge: Serious Plan - Discharge Summary Discharge Rx Participant: No New Discharge Prescriptions: New Atorvastatin [Lipitor] 80 mg PO DAILY #90 tab Metoprolol Tartrate [Lopressor] 25 mg PO BID 90 Days #180 tab Clopidogrel [Plavix] 75 mg PO DAILY #30 tab Acetaminophen Tab [Tylenol] 1,000 mg PO Q6HR PRN tab PRN Reason: Fever And/ Or Pain Spironolactone [Aldactone] 25 mg PO DAILY #90 tab Aspirin 325 mg PO DAILY 90 Days #90 tab Empagliflozin [Jardiance] 10 mg PO DAILY 90 Days #90 tablet Nitroglycerin Sl Tabs [Nitrostat] 0.4 mg SUBLINGUAL Q5M PRN #30 tab PRN Reason: Chest Pain Continue Loratadine [Claritin] 10 mg PO HS Discontinued Naproxen Sodium [Aleve] 220 mg PO DAILY Potassium (Unknown Dose) 1 tab PO DAILY Discharge Medication List Loratadine [Claritin] 10 mg PO HS 03/28/22 [History] Acetaminophen Tab [Tylenol] 1,000 mg PO Q6HR PRN tab 04/22/22 [Rx] Aspirin 325 mg PO DAILY 90 Days #90 tab 04/22/22 [Rx] Atorvastatin [Lipitor] 80 mg PO DAILY #90 tab 04/22/22 [Rx] Clopidogrel [Plavix] 75 mg PO DAILY #30 tab 04/22/22 [Rx] Empagliflozin [Jardiance] 10 mg PO DAILY 90 Days #90 tablet 04/22/22 [Rx] Metoprolol Tartrate [Lopressor] 25 mg PO BID 90 Days #180 tab 04/22/22 [Rx] Nitroglycerin Sl Tabs [Nitrostat] 0.4 mg SUBLINGUAL Q5M PRN #30 tab 04/22/22 [Rx] Spironolactone [Aldactone] 25 mg PO DAILY #90 tab 04/22/22 [Rx] Follow up Appointment(s)/Referral(s): Harvinder Yang MD [STAFF PHYSICIAN] - 1 Week (Follow-up with Dr. Yang/Susanna Reyes in 7-10 days post discharge) Chele Tyson Jr, DO [Primary Care Provider] - 1 Week Patient Instructions/Handouts: Type 2 Diabetes in Adults: New Diagnosis (GEN) Discharge Disposition: HOME SELF-CARE
--- NOTE | 2022-04-22 16:20 | P.PN ---
Subjective HPI patient woke up about 2:30 AM complaining of midsternal chest discomfort and bilateral arm heaviness He was a little dizzy and a bit short of breath The pain is persistent and he called EMS The EMS EKG documents ST elevation in the inferior leads When I saw him in the ER he was still experiencing midsternal chest discomfort but would comfortable Normal heart rates normal blood pressure Twelve-lead EKG showed ST elevation in the inferior leads and ST depression with T-wave inversions in V1 and V2 consistent with inferior posterior WI ST elevations more prominent in lead 2 than in lead 3 Denies history of hypertension and diabetes Past history of smoking, stopped smoking 10 years back History of hypokalemia and takes oral potassium 04/21 Patient seen and examined. He underwent heart catheterization yesterday morning with PCI of his circumflex and additional FFR of the LAD which was normal. He denies any further chest pain or pressure. Echocardiogram pending. Blood pressures have been well controlled on current regimen. No significant arrhythmias 04/22 Patient seen and examined. Patient denies any chest pain or pressure. Has been walking through without any difficulty. Heart rates reading in the 100 to 110s however on telemetry in the 90s. EXAMINATION: Vitals reviewed Breath sounds are reduced bilaterally with scattered crackles at the bases Normal heart sounds normal S1 normal S2 no murmurs no gallops no rub No JVD no hepatojugular reflux No carotid bruits Peripheral pulses are palpable Regular rhythm IMPRESSION / ASSESSMENT: Acute inferior posterior ST elevation WI, s/p PCI circumflex with residual nono bstructive LAD lesion by FFR History of dyslipidemia Denies history of hypertension or diabetes History of smoking, quit greater than 10 years back History of hypokalemia, takes oral potassium PLAN: Echocardiogram with EF 45%. He has been tolerating dual antiplatelets and current medical therapy. Appears stable for discharge home with outpatient follow-up with Dr. Yang in one week. Objective - Vital Signs Vital signs: Vital Signs Temp 98.2 F 04/22/22 08:51 Pulse 110 H 04/22/22 08:51 Resp 16 04/22/22 08:51 BP 117/76 04/22/22 08:51 Pulse Ox 94 L 04/22/22 08:51 FiO2 Intake & Output 04/21/22 04/22/22 04/22/22 18:59 06:59 18:59 Intake Total 975 540 236 Output Total 0 Balance 975 540 236 Weight 93 kg Intake: IV 75 Sodium Chloride 0.9% 1, 75 000 ml In Empty Bag 1 bag @ 75 mls/hr IV .[id number] [facility] Rx#:[id number] Oral 900 540 236 Output: Urine 0 Other: Voiding Method Toilet Toilet Toilet # Voids 1 1 - Labs CBC & Chem 7: 04/21/22 03:59 04/21/22 03:59 Labs: Abnormal Lab Results - Last 24 Hours (Table) 04/21/22 04/22/22 Range/Units 20:33 06:27 POC Glucose (mg/dL) 111 H 118 H (70-110) mg/dL
== END 2022-04-22 16:45 | disposition home or self-care (01) | DRG 247 ==
LOC: EC 03:14 → 2SICU 03:20 → 3SCARD 04-21 15:47
PROVIDERS: ADMIT Family Medicine; ATTEND Family Medicine
PROC: 02C03ZZ Extirpation of Matter from Coronary Artery, One Artery, Percutaneous Approach (ICD-10-PCS; principal; 2022-04-20 03:32)
PROC: B2111ZZ Fluoroscopy of Multiple Coronary Arteries using Low Osmolar Contrast (ICD-10-PCS; principal; 2022-04-20 03:32)
PROC: 4A033BC Measurement of Arterial Pressure, Coronary, Percutaneous Approach (ICD-10-PCS; principal; 2022-04-20 03:32)
PROC: 027034Z Dilation of Coronary Artery, One Artery with Drug-eluting Intraluminal Device, Percutaneous Approach (ICD-10-PCS; principal; 2022-04-20 03:32)
PROC: 4A023N7 Measurement of Cardiac Sampling and Pressure, Left Heart, Percutaneous Approach (ICD-10-PCS; principal; 2022-04-20 03:32)
DX: I21.11 ST elevation (STEMI) myocardial infarction involving right coronary artery (principal); E11.9 Type 2 diabetes mellitus without complications; E78.5 Hyperlipidemia, unspecified; M19.90 Unspecified osteoarthritis, unspecified site; J30.2 Other seasonal allergic rhinitis; Z79.1 Long term (current) use of non-steroidal anti-inflammatories (NSAID); Z79.899 Other long term (current) drug therapy; Z87.891 Personal history of nicotine dependence
CPT/HCPCS: 36415; 71045; 80048; 80053; 80061; 83036; 83690; 83735; 83880; 84443; 84484; 85025; 85610; 85730; 93005; 93306; 93458; 93571; 96374; 96375; 99291

== ENCOUNTER → 2022-06-26 | Outpatient (CLI) | payer MEDICARE ==
[2022-06-26 11:23] LABS: Chol/HDL Ratio 2.54 Ratio; LDL Cholesterol,Calculated 45.5 mg/dL (0.0-131.0); VLDL Calculation 19.94 mg/dL (5.00-40.00)
== END | disposition home or self-care (01) ==
LOC: LABWHC1 08:00
PROVIDERS: ATTEND Nurse Practitioner Adult Health
DX: E78.5 Hyperlipidemia, unspecified (principal); R73.03 Prediabetes
CPT/HCPCS: 36415; 80061; 83036

== ENCOUNTER → 2022-09-05 | Outpatient (CLI) | payer MEDICARE ==
[2022-09-05 15:39] LABS: Basophils # (A) 0.04 X 10*3/uL (0.00-0.10); Basophils % (A) 0.6 %; Eosinophils # (A) 0.39 X 10*3/uL (0.04-0.35); Eosinophils % (A) 5.7 %; HCT 48.7 % (39.6-50.0); Immature Grans, Automated 0.3 %; Lymphocytes # (A) 1.69 X 10*3/uL (0.90-5.00); Lymphocytes % (A) 24.8 %; MCH 29.3 pg (27.0-32.0); MCHC 32.9 g/dL (32.0-37.0); MCV 89.2 fL (80.0-97.0); Mean Platelet Volume 8.9 fL (9.5-12.2); Monocytes # (A) 0.61 X 10*3/uL (0.20-1.00); Monocytes % (A) 8.9 %; NRBC Per 100 WBC 0 /100 WBCS (0.0-0.0); Neutrophils # (A) 4.07 X 10*3/uL (1.80-7.70); Neutrophils % (A) 59.7 %; Platelet Count 235 X 10*3/uL (140-440); RBC 5.46 X 10*6/uL (4.40-5.60); RDW 13.4 % (11.5-14.5); WBC 6.82 X 10*3/uL (4.50-10.00)
[2022-09-05 16:03] LABS: African American GFR (CKD) 84.9 (60.0-200.0); Albumin 4.7 g/dL (3.8-4.9); Albumin/Globulin Ratio 1.85 (1.60-3.17); Anion Gap 11.9 mmol/L (10.00-18.00); BUN/Creat Ratio 14.85 Ratio (12.00-20.00); Blood Urea Nitrogen 15.3 mg/dL (9.0-27.0); Calcium 10.2 mg/dL (8.7-10.3); Carbon Dioxide 25.7 mmol/L (20.0-27.5); Globulin 2.5 g/dL (1.6-3.3); Non-African American GFR(CKD) 73.3 (60.0-200.0); Potassium 4.3 mmol/L (3.5-5.5); Total Bilirubin 0.4 mg/dL (0.30-1.20); Total Protein 7.2 g/dL (6.2-8.2)
== END | disposition home or self-care (01) ==
LOC: LABWHC1 08:31
PROVIDERS: ATTEND Family Medicine
DX: I10 Essential (primary) hypertension (principal)
CPT/HCPCS: 36415; 80053; 85025

== ENCOUNTER 2024-02-15 07:19 | Emergency (ER) | payer MEDICARE ==
--- NOTE | 2024-02-15 07:36 | ED ---
General Adult HPI - General Chief complaint: Dizziness Stated complaint: Dizziness Time Seen by Provider: 02/15/24 07:22 Source: patient, RN notes reviewed Mode of arrival: wheelchair Limitations: no limitations - History of Present Illness Initial comments: Patient is a 73-year-old male presenting to the emergency department with concerns with dizziness. Onset of symptoms was 530 this morning when he got up. Dizziness increases with head movement and upright position. Dizziness improves with lying down and closing his eyes. Patient does have a similar history of similar episodes a couple of times previously. Dizziness is described as a spinning type sensation. No confusion. No weakness. No speech difficulties. - Related Data Home Medications Medication Instructions Recorded Confirmed Loratadine [Claritin] 10 mg PO HS 03/28/22 02/15/24 Cholecalciferol (Vitamin D3) 75 mcg PO HS 02/15/24 02/15/24 [Vitamin D3 (3000 Iu)] Ezetimibe [Zetia] 10 mg PO DAILY 02/15/24 02/15/24 Losartan [Cozaar] 25 mg PO DAILY 02/15/24 02/15/24 Metoprolol Succinate [Toprol XL] 50 mg PO DAILY 02/15/24 02/15/24 Tamsulosin HCl [Flomax] 0.4 mg PO DAILY 02/15/24 02/15/24 Previous Rx's Medication Instructions Recorded Atorvastatin [Lipitor] 80 mg PO DAILY #90 tab 04/22/22 Clopidogrel [Plavix] 75 mg PO DAILY #30 tab 04/22/22 Empagliflozin [Jardiance] 10 mg PO DAILY 90 Days #90 tablet 04/22/22 Spironolactone [Aldactone] 25 mg PO DAILY #90 tab 04/22/22 Meclizine [Antivert] 25 mg PO TID PRN #12 tab 02/15/24 Metoclopramide HCl [Reglan] 10 mg PO Q6HR PRN #15 tablet 02/15/24 Allergies Allergy/AdvReac Type Severity Reaction Status Date / Time No Known Allergies Allergy Verified 02/15/24 09:48 Review of Systems ROS Statement: Those systems with pertinent positive or pertinent negative responses have been documented in the HPI. ROS Other: All systems not noted in ROS Statement are negative. Constitutional: Denies: fever Eyes: Denies: eye pain ENT: Denies: ear pain Respiratory: Denies: cough Cardiovascular: Denies: chest pain Neurological: Reports: vertigo. Denies: headache, weakness, confusion Past Medical History Past Medical History: Hypertension Additional Past Medical History / Comment(s): Seasonal allergies. History of Any Multi-Drug Resistant Organisms: None Reported Past Surgical History: Hernia Repair Additional Past Surgical History / Comment(s): Colonoscopy. Past Anesthesia/Blood Transfusion Reactions: No Reported Reaction Past Psychological History: No Psychological Hx Reported Smoking Status: Former smoker Past Alcohol Use History: Occasional Past Drug Use History: None Reported - Past Family History Father Family Medical History: Cancer Additional Family Medical History / Comment(s): Liver cirrosis Mother Family Medical History: Cancer Additional Family Medical History / Comment(s): Valve replacement General Exam Limitations: no limitations General appearance: alert, in no apparent distress Head exam: Present: normocephalic Eye exam: Present: normal appearance, PERRL, EOMI. Absent: nystagmus ENT exam: Present: normal oropharynx, TM's normal bilaterally Neck exam: Present: normal inspection Respiratory exam: Present: normal lung sounds bilaterally Cardiovascular Exam: Present: regular rate, normal rhythm GI/Abdominal exam: Present: soft. Absent: tenderness Extremities exam: Present: normal inspection. Absent: pedal edema, calf tenderness Neurological exam: Present: alert, oriented X3, CN II-XII intact. Absent: motor sensory deficit Expanded Patient oriented to: Present: person, place, time Speech: Present: fluid speech Cranial nerves: EOM's Intact: Normal, Facial Sensation: Normal Sensory exam: Upper Extremity Light Touch: Normal, Lower Extremity Light Touch: Normal Motor strength exam: RUE: 5, LUE: 5, RLE: 5, LLE: 5 Eye Response: (4) open spontaneously Motor Response: (6) obeys commands Verbal Response: (5) oriented Psychiatric exam: Present: normal affect, normal mood Skin exam: Present: normal color Course Vital Signs 02/15/24 02/15/24 02/15/24 07:20 07:35 08:56 Temperature 98.0 F 98.3 F Pulse Rate 82 80 73 Respiratory 16 18 18 Rate Blood Pressure 128/82 130/84 116/78 O2 Sat by Pulse 97 95 Oximetry 02/15/24 09:27 Temperature Pulse Rate 86 Respiratory 18 Rate Blood Pressure 117/83 O2 Sat by Pulse 97 Oximetry EKG Findings - EKG Results: EKG: interpreted by ERMD, sinus rhythm, normal axis, normal QRS, normal ST/T Medical Decision Making - Medical Decision Making Was pt. sent in by a medical professional or institution ([facility], CREDIT ASSOCIATE, urgent care, hospital, or fpc...) When possible be specific @ -No Did you speak to anyone other than the patient for history (EMS, parent, family, police, friend...)? What history was obtained from this source @ - provides additional history that patient sometimes has earwax buildup Did you review nursing and triage notes (agree or disagree)? Why? @ -I reviewed and agree with nursing and triage notes Were old charts reviewed (outside hosp., previous admission, EMS record, old EKG, old radiological studies, urgent care reports/EKG's, fpc records)? Report findings @ -No old charts were reviewed Differential Diagnosis (chest pain, altered mental status, abdominal pain women, abdominal pain men, vaginal bleeding, weakness, fever, dyspnea, syncope, headache, dizziness, GI bleed, back pain, seizure, CVA, palpatations, mental health, musculoskeletal)? @ -Differential Dizziness: Benign paroxysmal positional Vertigo, Meniere's disease, otitis media, acoustic neuroma, vertebrobasilar insufficiency, cerebellar stroke, encephalitis, hypovolemic, arrhythmia, coronary artery syndrome, anemia, this is not meant to be an all-inclusive list EKG interpreted by me (3pts min.). @ -As above X-rays interpreted by me (1pt min.). @ -None done CT interpreted by me (1pt min.). @ -CT brain interpreted by myself without acute abnormality U/S interpreted by me (1pt. min.). @ -None done What testing was considered but not performed or refused? (CT, X-rays, U/S, labs)? Why? @ -None What meds were considered but not given or refused? Why? @ -None Did you discuss the management of the patient with other professionals (professionals i.e. [facility], CREDIT ASSOCIATE, lab, RT, psych nurse, social work specialist, pulp grinder and blender, teacher, correctional officer lieutenant, pillowcase cutter)? Give summary @ -No Was smoking cessation discussed for >3mins.? @ -No Was critical care preformed (if so, how long)? @ -No Were there social determinants of health that impacted care today? How? (Homelessness, low income, unemployed, alcoholism, drug addiction, transport ation, low edu. Level, literacy, decrease access to med. care, penitentiary, rehab)? @ -No Was there de-escalation of care discussed even if they declined (Discuss DNR or withdrawal of care, Hospice)? DNR status @ -No What co-morbidities impacted this encounter? (DM, HTN, Smoking, COPD, CAD, Cancer, CVA, ARF, Chemo, Hep., AIDS, mental health diagnosis, sleep apnea, morbid obesity)? @ -History of dizziness Was patient admitted / discharged? Hospital course, mention meds given and route, prescriptions, significant lab abnormalities, going to OR and other pertinent info. @ -Patient presents with acute onset vertigo type symptoms resolved with medications. No neurological deficits. Head CT negative. Patient feels better and able to ambulate without difficulty. Patient comfortable with discharge home. Patient and family updated Undiagnosed new problem with uncertain prognosis? @ -No Drug Therapy requiring intensive monitoring for toxicity (Heparin, Nitro, Insulin, Cardizem)? @ -No Were any procedures done? @ -No Diagnosis/symptom? @ -Vertigo Acute, or Chronic, or Acute on Chronic? @ -Acute Uncomplicated (without systemic symptoms) or Complicated (systemic symptoms)? @ -Default Side effects of treatment? @ -No Exacerbation, Progression, or Severe Exacerbation? @ -No Poses a threat to life or bodily function? How? (Chest pain, [place], [place], pneumonia, PE, COPD, DKA, ARF, appy, cholecystitis, CVA, Diverticulitis, Homicidal, Suicidal, threat to staff... and all critical care pts) @ -No - Lab Data Result diagrams: 02/15/24 07:44 02/15/24 07:44 Lab Results 02/15/24 02/15/24 02/15/24 Range/Units 07:44 07:44 07:44 WBC 6.3 (3.8-10.6) k/uL RBC 5.10 (4.30-5.90) m/uL Hgb 14.8 (13.0-17.5) gm/dL Hct 46.2 (39.0-53.0) % MCV 90.6 (80.0-100.0) fL MCH 29.0 (25.0-35.0) pg MCHC 32.0 (31.0-37.0) g/dL RDW 12.8 (11.5-15.5) % Plt Count 217 (150-450) k/uL MPV 6.7 Neutrophils % 66 % Lymphocytes % 21 % Monocytes % 7 % Eosinophils % 4 % Basophils % 1 % Neutrophils # 4.2 (1.3-7.7) k/uL Lymphocytes # 1.3 (1.0-4.8) k/uL Monocytes # 0.5 (0-1.0) k/uL Eosinophils # 0.2 (0-0.7) k/uL Basophils # 0.0 (0-0.2) k/uL Sodium 134 L (137-145) mmol/L Potassium 4.9 (3.5-5.1) mmol/L Chloride 106 (98-107) mmol/L Carbon Dioxide 21 L (22-30) mmol/L Anion Gap 7 mmol/L BUN 12 (9-20) mg/dL Creatinine 0.83 (0.66-1.25) mg/dL Est GFR (CKD-EPI)AfAm >90 (>60 ml/min/1.73 sqM) Est GFR (CKD-EPI)NonAf 89 (>60 ml/min/1.73 sqM) Glucose 149 H (74-99) mg/dL Plasma Lactic Acid Hiren 1.3 (0.7-2.0) mmol/L Calcium 9.3 (8.4-10.2) mg/dL Total Bilirubin 1.4 H (0.2-1.3) mg/dL AST 51 (17-59) U/L ALT 29 (4-49) U/L Alkaline Phosphatase 57 (38-126) U/L Total Protein 6.9 (6.3-8.2) g/dL Albumin 4.4 (3.5-5.0) g/dL Disposition Clinical Impression: Vertigo Disposition: HOME SELF-CARE Condition: Stable Instructions (If sedation given, give patient instructions): Dizziness (ED) Additional Instructions: [id number] Antivert as needed. Prescription for Reglan as needed for dizziness. Return for increased dizziness, weakness, confusion, speech problems, worsening or changing symptoms or any other concerns. Please follow- up with your doctor Sunday as planned. Prescriptions: Meclizine [Antivert] 25 mg PO TID PRN #12 tab PRN Reason: dizziness Metoclopramide HCl [Reglan] 10 mg PO Q6HR PRN #15 tablet PRN Reason: Nausea Is patient prescribed a controlled substance at d/c from ED?: No Referrals: Chele Tyson Jr, DO [Primary Care Provider] - 1-2 days Time of Disposition: 10:00
[2024-02-15] MEDS: SODIUM CHLORIDE 0.9% 1,000 ML IV STA (07:59)
[2024-02-15] MEDS: MECLIZINE 12.5 MG TAB PO STA (07:59)
[2024-02-15 08:04] LABS: Basophils % (A) 1 %; Eosinophils # (A) 0.2 k/uL (0-0.7); Eosinophils % (A) 4 %; HCT 46.2 % (39.0-53.0); HGB 14.8 gm/dL (13.0-17.5); Lymphocytes # (A) 1.3 k/uL (1.0-4.8); Lymphocytes % (A) 21 %; MCV 90.6 fL (80.0-100.0); Mean Platelet Volume 6.7; Monocytes # (A) 0.5 k/uL (0-1.0); Monocytes % (A) 7 %; Neutrophils # (A) 4.2 k/uL (1.3-7.7); Neutrophils % (A) 66 %; Platelet Count 217 k/uL (150-450); RDW 12.8 % (11.5-15.5); WBC 6.3 k/uL (3.8-10.6)
--- NOTE | 2024-02-15 08:04 | CT ---
EXAMINATION TYPE: CT brain wo con DATE OF EXAM: 02/15/2024 COMPARISON: None INDICATION: Vertigo DLP: 1154.4 mGycm, Automated exposure control for dose reduction was used. CONTRAST: None CT of the brain is performed utilizing 3 mm thick sections through the posterior fossa and 3 mm thick sections through the remaining calvarium. Study is performed within 24 hours of arrival to the hosp ital. No abnormal hyperdensity is present to suggest an acute intracranial hemorrhage. No mass lesion is evident. No acute infarcts are evident. Ventricles and sulci are appropriate for the patient age. Paranasal sinuses and mastoid air cells within the [id number] are clear. IMPRESSION: 1. No acute intracranial process. Follow up MRI can be performed as clinically indicated. [facility], , 02/15/2024 8:02 AM
[2024-02-15 08:20] LABS: ALT 29 U/L (4-49); African American GFR (CKD) >90 (>60 ml/min/1.73 sqM); Albumin 4.4 g/dL (3.5-5.0); Anion Gap 7 mmol/L; Blood Urea Nitrogen 12 mg/dL (9-20); Calcium 9.3 mg/dL (8.4-10.2); Carbon Dioxide 21 mmol/L (22-30); Chloride 106 mmol/L (98-107); Glucose 149 mg/dL (74-99); Non-African American GFR(CKD) 89 (>60 ml/min/1.73 sqM); Sodium 134 mmol/L (137-145); Total Bilirubin 1.4 mg/dL (0.2-1.3); Total Protein 6.9 g/dL (6.3-8.2)
[2024-02-15 08:34] LABS: AST 51 U/L (17-59); Alkaline Phosphatase 57 U/L (38-126); Potassium 4.9 mmol/L (3.5-5.1)
[2024-02-15] MEDS: METOCLOPRAMIDE 5 MG/ML 2 ML VIAL IVP STA (09:23)
[2024-02-15 10:20] VITALS: BP 119/86; PULSE 70; RESP 15; TEMP 98.2
== END 2024-02-15 10:15 | disposition home or self-care (01) ==
LOC: EC 07:19
CPT/HCPCS: 36415; 70450; 80053; 83605; 85025; 93005; 96361; 96374; 99284